=== PATIENT | female | born 1960 | race African-American/Black ===

== ENCOUNTER → 2019-11-16 | Outpatient (CLI) | payer MEDICARE ==
--- NOTE | 2019-11-16 12:42 | RADIOLOGY REPORT (SQ) ---
EXAM DESCRIPTION: FOOT RIGHT COMPLETE IMAGES COMPLETED DATE/TIME: 11/16/2019 11:46 am REASON FOR STUDY: PAIN IN RIGHT FOOT M79.671 PAIN IN RIGHT FOOT COMPARISON: None. NUMBER OF VIEWS: Three views. TECHNIQUE: AP, lateral and oblique radiographic images acquired of the right foot. LIMITATIONS: None. FINDINGS: MINERALIZATION: Normal. BONES: Pes planus. Cannot exclude a chip fracture at the base of the 1st proximal phalanx. This is only suggested on a single view. JOINTS: No effusions. SOFT TISSUES: No soft tissue swelling. No foreign body. OTHER: No other significant finding. IMPRESSION: Pes planus. Cannot exclude chip fracture at the base of the 1st proximal phalanx latera lly. TECHNICAL DOCUMENTATION: JOB ID: [id number] 2010 [employer]- All Rights Reserved Reading location - IP/workstation name: [email or web address]
== END ==
LOC: OD 11:30
PROVIDERS: ATTEND Podiatrist Foot & Ankle Surgery
DX: M79.671 Pain in right foot (principal); M21.41 Flat foot [pes planus] (acquired), right foot